=== PATIENT | male | born 1960 | race Caucasian/White ===

== ENCOUNTER 2021-01-03 10:12 | Emergency (ER) | payer BC ==
[2021-01-03] MEDS ORDERED: Bacitracin Oint 1 GM U/D Packet TOP ONE (11:41)
--- NOTE | 2021-01-03 11:46 | EDM.PDOC ---
ED HPI GENERAL MEDICAL PROBLEM - General Chief Complaint: Laceration Stated Complaint: FISH HOOK LT RING AND THUMB FINGER Time Seen by Provider: 01/03/21 10:45 Source of Information: Reports: Patient, RN Notes Reviewed History Limitations: Reports: No Limitations - History of Present Illness INITIAL COMMENTS - FREE TEXT/NARRATIVE: 60-year-old gentleman presents emergency department day with a fishhook injury to digits 1 and 3 on his left hand he is unsure of his tetanus status - Related Data Allergies Allergy/AdvReac Type Severity Reaction Status Date / Time No Known Allergies Allergy Verified 01/03/21 10:40 Home Meds: Home Meds atorvaSTATin [Lipitor] 20 mg PO BEDTIME 01/03/21 [History] lisinopriL [Lisinopril] 10 mg PO DAILY 01/03/21 [History] Past Medical History HEENT History: Reports: Impaired Vision Cardiovascular History: Reports: High Cholesterol, Hypertension Social & Family History - Tobacco Use Tobacco Use Status *Q: Never Tobacco User ED ROS GENERAL - Review of Systems Review Of Systems: See Below Skin: Reports: Wound ED EXAM, SKIN/RASH Exam: See Below Text/Narrative:: Digit #1 has 2 fishhooks in the distal tip of digit #3 has 1 fishhook in the distal tip, ED SKIN PROCEDURES - Foreign Body Removal Indication:: Kerr digits 1 and 3 this is a trouble hook Consent Obtained:: Patient Performing Doctor:: OfficerYann Anesthesia Type: Other (see below) (Digital) Findings:: After adequate anesthesia with a digital block in the usual fashion digits 1 and 3 distal tips were none a side cutter was used to separate the 3 barbs then a large needle taxi cab driver was used to grasp each hook individually and backing out. Complications:: No Course - Vital Signs Last Recorded V/S: Last Vital Signs Temp 97.0 F 01/03/21 10:55 Pulse 63 01/03/21 10:55 Resp 14 01/03/21 10:55 BP 133/78 01/03/21 10:55 Pulse Ox 97 01/03/21 10:55 - Orders/Labs/Meds Meds: Medications Discontinued Medications Generic Name Dose Route Start Last Admin Trade Name Freq PRN Reason Stop Dose Admin Lidocaine HCl 5 ml 01/03/21 10:48 Lidocaine 1% 5 Ml Sdv INJECT 01/03/21 10:49 ONETIME ONE Departure - Departure Time of Disposition: 11:46 Disposition: Home, Self-Care 01 Condition: Good Clinical Impression: Fish hook injury of finger Qualifiers: Encounter type: initial encounter Laterality: left Qualified Code(s): S69.92XA - Unspecified injury of left wrist, hand and finger(s), initial encounter - Discharge Information Instructions: Puncture Wound, [id number] Referrals: PCP,None [Primary Care Provider] - Additional Instructions: Follow-up with primary care as needed call return to the emergency department worsening symptoms Sepsis Event Note (ED) - Evaluation Sepsis Screening Result: No Definite Risk - Focused Exam Vital Signs: Vital Signs Temp Pulse Resp BP Pulse Ox 01/03/21 10:55 97.0 F 63 14 133/78 97 01/03/21 10:52 97.0 F 63 14 133/78 97 - Assessment/Plan Plan: Assessment Acuity = acute Site and laterality = fishhook injury left hand Etiology = rapila Manifestations = none Location of injury = Home Lab values = none Plan The wounds were dressed with bacitracin by nursing staff, tetanus is from 2019 follow-up with primary care as needed This note was dictated using [employer] recognition software please call with any questions on syntax or grammar.
== END 2021-01-03 12:01 | disposition home or self-care (01) ==
LOC: JP.ED 10:12
DX: S60.352A Superficial foreign body of left thumb, initial encounter (principal); S60.453A Superficial foreign body of left middle finger, initial encounter; I10 Essential (primary) hypertension; E78.00 Pure hypercholesterolemia, unspecified; Z79.899 Other long term (current) drug therapy; W45.8XXA Other foreign body or object entering through skin, initial encounter
CPT/HCPCS: 64450; 99282-25